=== PATIENT | female | born 1980 | race Caucasian/White ===

== ENCOUNTER 2023-10-28 17:12 | Emergency (ER) | payer OTHER ==
[2023-10-28] MEDS ORDERED: Sodium Chloride 0.9% 10 ML Syringe FLUSH PRN (17:53)
[2023-10-28 18:20] LABS: MEAN CORPUSCULAR HEMOGLOBIN 34.2 pg (27.0-34.0); MEAN CORPUSCULAR HGB CONC 30.7 g/dL (33.0-35.0); MEAN CORPUSCULAR VOLUME 111.4 fL (80-100); PLATELET COUNT,PLT 708 10^3/uL (150-450); RED BLOOD CELL COUNT 1.14 10^6/uL (4.2-5.4); WHITE BLOOD CELL COUNT,WBC 25.7 10^3/uL (5.0-10.0)
[2023-10-28 18:23] LABS: HEMATOCRIT 12.7 % (37.0-47.0); HEMOGLOBIN 3.9 g/dL (12.0-16.0); LYMPHOCYTES PERCENT AUTO 9.6 % (20.5-50.1); MONOCYTES PERCENT AUTO 6.1 % (2-8); NEUTROPHILS PERCENT AUTO 83.3 % (42.2-75.2)
[2023-10-28 18:24] LABS: BASOPHILS PERCENT AUTO 0.3 % (0.0-1.0); EOSINOPHILS PERCENT AUTO 0.7 % (1.0-3.0)
[2023-10-28] MEDS: Sodium Chloride 0.9% 1,000 ML IV ONE (18:34)
[2023-10-28 18:41] LABS: LYMPHOCYTES PERCENT MAN 10 % (20-50); MONOCYTES PERCENT MAN 4 % (2-8); NRBC MANUAL 3 /100WBC; SEG NEUTROPHILS PERCENT MAN 86 % (42-75)
[2023-10-28 18:42] LABS: ALANINE AMINOTRANSFERASE,ALT 24 U/L (14-59); ALBUMIN 1.8 g/dL (3.4-5.0); ALKALINE PHOSPHATASE 193 U/L (46-116); ANION GAP 14.8 mEq/L (7-13); ASPARTATE AMNIOTRANSFERASE,AST 83 U/L (15-37); BILIRUBIN TOTAL 0.7 mg/dL (0.2-1.0); BLOOD UREA NITROGEN,BUN 7 mg/dL (7-18); BUN/CREATININE RATIO 8.1 (No establ ref range); C-REACTIVE PROTEIN 3.41 ng/dL (<=0.50); CALCIUM 7.7 mg/dL (8.5-10.1); CARBON DIOXIDE,CO2 25 mmol/L (21-32); CHLORIDE,CL 103 mmol/L (98-107); CREATININE 0.86 mg/dL (0.55-1.02); EST CRCL DRUG DOSING (CG) 69.05 mL/min; GLUCOSE RANDOM 132 mg/dL (70-99); MAGNESIUM 1.8 mg/dL (1.8-2.4); POTASSIUM,K 2.8 mmol/L (3.5-5.1); PROTEIN TOTAL,TP 5.3 g/dL (6.4-8.2); SODIUM,NA 140 mmol/L (136-145)
[2023-10-28 18:46] LABS: HCG QUALITATIVE,SERUM NEGATIVE (NEGATIVE)
[2023-10-28 18:47] LABS: A/G RATIO 0.51; ESTIMATED GFR 85 mL/min (>=60)
[2023-10-28 18:48] LABS: LACTIC ACID 2.1 mmol/L (0.4-2.0)
[2023-10-28] MEDS: Tranexamic Acid 1,000 MG in Sodium Chloride 0.9% 500 ML IV ONE (18:57)
[2023-10-28 18:58] LABS: INR 1.5 (0.9-1.2); PROTHROMBIN TIME 15.1 SEC (9.0-12.0)
[2023-10-28 19:12] LABS: AMYLASE 54 U/L (25-115); LIPASE 96 U/L (16-77)
[2023-10-28] MEDS: Octreotide 100 MCG/ML SDV IVPUSH ONE (19:13)
[2023-10-28] MEDS: Piperacillin/Tazobactam 4.5 GM in Sodium Chloride 0.9% 100 ML IV ONE (19:13)
[2023-10-28] MEDS: Pantoprazole 40 MG Vial IVPUSH ONE (19:17)
[2023-10-28] MEDS: Octreotide 100 MCG in Sodium Chloride 0.9% 99 ML IV SCH (19:18)
[2023-10-28] MEDS: NS with KCl 40mEq 1,000 ML IV SCH (20:11)
[2023-10-28] MEDS: Pantoprazole 40 MG in Sodium Chloride 0.9% 100 ML IV SCH (20:11)
== END 2023-10-28 20:21 ==
LOC: DL.ED 17:12
DX: E87.6 Hypokalemia (principal); K92.2 Gastrointestinal hemorrhage, unspecified
CPT/HCPCS: 36415; 36430; 80053; 82150; 83605; 83690; 83735; 84703; 85025; 85610; 86140; 86850; 86900; 86901; 86920; 86922; 96365; 96368; 96375; 96376; 99285; C9113; J2354; J2543; J3480; J3490; J7030; J7040; P9016